=== PATIENT | female | born 1960 | race Caucasian/White ===

== ENCOUNTER 2017-05-08 09:52 | Observation (INO) ==
[2017-05-08 10:24] LABS: Basophils % 0.9 % (0.0-0.8); Eosinophils # 0.1 10*3/uL (0.0-0.87); Eosinophils % 2.2 % (0.00-10.9); Hematocrit 37.1 VOL% (35.7-47.0); Hemoglobin 12.3 GM/DL (12.0-16.0); Immature Granulocytes % 0.4 %; Immature Granulocytes Absolute 0.02 #; Lymphocytes # 1.3 10*3/uL (1.4-4.0); Mean Corpuscular HGB Conc 33.2 GM/DL (32-36); Mean Corpuscular Hemoglobin 30 PG (27-34); Mean Corpuscular Volume 91.2 FL (87-102); Mean Platelet Volume 10.6 FL (9.6-12.0); Monocytes # 0.4 10*3/uL (0.11-0.8); Monocytes % 8.3 % (1.7-12.7); Neutrophils # 2.8 10*3/uL (1.4-7.4); Neutrophils % 60.2 % (38.7-73.9); Platelet Count 170 T/CUMM (130-400); Red Blood Count 4.07 MC/CUMM (3.8-5.5); Red Cell Distribution Width 12.6 % (9.3-17.3); White Blood Count 4.6 T/CUMM (4-12)
[2017-05-08] MEDS ORDERED: ENOXAPARIN 100 MG/ML SYRINGE SUBCUT STA (10:24)
[2017-05-08] MEDS ORDERED: ENOXAPARIN 100 MG/ML SYRINGE SUBCUT ONE (10:26)
[2017-05-08 10:31] LABS: PT Patient Result 11.1 SECS; Partial Thromboplastin Time 25.3 SECS (0-40)
--- NOTE | 2017-05-08 10:39 | XRay Report ---
Exam: Chest 2 views Date: May 08, 2017 at 10:30 AM Comparison: None Reason: Chest pain Findings: The cardiac silhouette is upper normal in size. No focal consolidation, pneumothorax or pleural effusion is identified. No acute osseous process is seen. Surgical clips are noted at the anterior right abdominal wall. Impression: 1. Borderline cardiomegaly. 2. No acute pulmonary process is identified. PROCEDURE INTERPRETED AT [facility] DEPARTMENT OF RADIOLOGY Final Report Signed by: Dr. Naga Samano
[2017-05-08 10:40] LABS: Alanine Aminotransferase 26 U/L (13-56); Albumin 3.3 G/DL (3.4-5.0); Alkaline Phosphatase 127 U/L (45-117); Aspartate Amino Transferase 21 U/L (0-37); Blood Urea Nitrogen 17 MG/DL (7-18); Calcium 9.2 MG/DL (8.5-10.1); Glucose 84 MG/DL (74-106); Osmolality,Calculated 279.4 MOS/KG (273-304); Potassium 4.1 MMOL/L (3.5-5.1); Sodium 140 MMOL/L (136-145); Total Protein 6.5 G/DL (6.4-8.3); Troponin I Only 0.033 NG/ML (0.00-0.045)
--- NOTE | 2017-05-08 11:10 | Emergency Department Note ---
Ned Abarca Gwan, am scribing for, and in the presence of, Curtis Zaragoza MD 10:33. Nik Abarca Phillip K, MD, personally performed the services described in this documentation, ascribed by Antonia Marino in my presence, and it is both accurate and complete . Arrival - Arrival Chief Complaint: Chest Pain Stated Complaint: chest pain ED Nursing Triage Note: Sent from clinic Dr Nogueira - pt states that she started having some midsternal chest pain onset this am - pt went to clinic and was sent here for evaluation - pt pain was relieved with nitro x 2 Mode of Arrival: Stretcher Limitations: No Limitations Source: Patient, Old Records Reviewed, RN Notes Reviewed - History of Present Illness HPI Narrative: Patient is a 56 y/o female who presents to the ED via Dr. Nogueira office for further evaluation of mid-sternal chest pain with an onset this morning. Patient has a PMHx of Chloecystectomy and Gastric Bypass (2013). She has a PMHx of cardiac dysrhythmia and HTN. Patient stated that she was at home cooking breakfast when onset occurred. This prompted pt to report to PCP Dr. Nogueira's office. After evaluation, pt was given x2 NTG and 1 aspirin with some relief. She was then prompted to report to ED. Nurses note that while in ED, pt had another episode causing the nurse to administer another NTG with some relief. Patient describes her pain as an ache, that it is intermittent, that it started in the right side of her chest and then moved to the center of her chest and began to radiate down her right arm. She confirmed that she has been followed by Dr. Diaz, that she had an echocardiogram 3 years ago and that she has a FMHx of heart disease. Patient denies any SOB, cough or fever. During exam, pt stated that she is asymptomatic. No other problems/complaints reported in ED. Onset (ago): hour(s) Consistency: constant Severity: moderate Date of Last Menstrual Period: enzo Allergies/Adverse Reactions: Allergies Allergy/AdvReac Type Severity Reaction Status Date / Time adhesive tape Allergy RASH Verified 05/08/17 09:56 Review of System - Review of System 12 point system: reviewed and no additional remarkable complaints except as stated - Review of System Constitutional: Absent: chills, fever Eyes: Absent: discharge, pain Head/Ears/Nose/Throat: Absent: earache Respiratory: Absent: cough Cardiovascular: Present: as per HPI, chest pain Gastrointestinal: Absent: abdominal pain, nausea, vomiting, diarrhea Genitourinary female: Absent: dysuria Musculoskeletal: Absent: arm pain, back pain, leg pain, neck pain Skin: Absent: rash Neurological: Absent: headache, weakness Medical,Surgical,& Family Hx - Medical History Cardio: History of: Cardiac Dysrhythmia, Hypertension - Social History Smoking Status: Never smoker Frequency of Alcohol Use: None Type of Drug Use: None Exam Vital Signs: Vital Signs Temperature 98.0 F 05/08/17 10:02 Pulse Rate 70 05/08/17 10:02 Respiratory Rate 16 05/08/17 10:14 Blood Pressure 169/100 05/08/17 10:02 O2 Sat by Pulse Oximetry 95 05/08/17 09:56 - General General appearance: alert - Head Head exam: Present: atraumatic, normocephalic - Eye Eye exam: Present: normal appearance, PERRL, EOMI - ENT ENT exam: Present: normal oropharynx, mucous membranes moist, TM's normal bilaterally, normal external ear exam - Neck Neck exam: Present: full ROM, trachea midline. Absent: tenderness - Chest Chest inspection: Present: symmetric chest wall rise. Absent: tenderness - Respiratory Respiratory exam: Present: normal lung sounds bilaterally. Absent: respiratory distress - Cardiovascular Cardiovascular exam: Present: regular rate, normal rhythm, normal heart sounds. Absent: murmur - Abdominal Exam Abdominal exam: Present: soft, normal bowel sounds. Absent: distention, tenderness - Extremities Exam Extremities exam: Present: full ROM, other (chronic left ankle edema noted per patient ). Absent: tenderness - Back Exam Back exam: Present: full ROM. Absent: tenderness - Neurological Exam Neurological exam: Present: alert, oriented X3, CN II-XII intact. Absent: motor sensory deficit - Psychiatric Psychiatric exam: Present: normal affect, normal mood - Skin Skin exam: Present: warm, dry, intact, normal color Course Course Narrative: Patient discussed with Dr. Moffett who will admit for further cardiac evaluation. Results - Labs CBC & BMP: 05/08/17 10:03 05/08/17 10:03 Lab Results: I have reviewed the patients labs Labs: Laboratory Tests 05/08/17 05/08/17 10:03 10:03 WBC 4.6 RBC 4.07 Hgb 12.3 Hct 37.1 Plt Count 170 Baso % (Auto) 0.9 H Lymph # (Auto) 1.3 L INR 1.0 PT Patient/Control Mix 11.1 Circ Anticoag PTT 25.3 Disposition Clinical Impression: Chest pain, Possible unstable angina Case discussed with: patient Condition: Guarded Additional Instructions: Admit to Dr. Moffett
[2017-05-08] MEDS ORDERED: CYCLOBENZAPRINE 10 MG TABLET PO PRN (15:07)
[2017-05-08] MEDS ORDERED: diphenhydrAMINE CAP 25 MG CAPSULE PO ONE ×2 (15:56→16:31)
[2017-05-08] MEDS ORDERED: ENOXAPARIN 100 MG/ML SYRINGE SUBCUT SCH (16:00)
[2017-05-08] MEDS: LISINOPRIL 20 MG TABLET PO SCH (16:19)
[2017-05-08] MEDS: PANTOPRAZOLE 40 MG TABLET PO SCH (16:19)
[2017-05-08] MEDS ORDERED: POTASSIUM CHLORIDE RIDER 10 MEQ in PREMIX 1 EACH IV PRN (16:31)
[2017-05-08] MEDS ORDERED: MAGNESIUM SULF RIDER 2 GM in PREMIX 1 EACH IV PRN (16:31)
[2017-05-08] MEDS ORDERED: DIAZEPAM 5 MG TABLET PO ONE (16:31)
--- NOTE | 2017-05-08 16:40 | Cardiology History & Physical ---
Assessment and Plan - Time spent with patient Time spent with patient: Greater than 30 minutes (1) Unstable angina Status: Acute Assessment and plan: See plan of care listed below. Current Visit: Yes (2) Uncontrolled hypertension Status: Chronic Assessment and plan: See plan of care listed below. Current Visit: Yes (3) Family history of coronary artery disease Status: Chronic Assessment and plan: See plan of care listed below. 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 Current Visit: Yes History of Present Illness Chief complaint: CHEST PAIN History of present illness: Teller Manager: New to cardiology (Emily, per patient) PCP: Dr. Nogueira Ms. Momin is a 56 year old female without known history of coronary artery disease, not routinely followed by cardiology. Patient presented to emergency department earlier this morning with complaints of chest discomfort. She has cardiac risk factors significant for uncontrolled hypertension, obesity and family history of coronary artery disease (dad required coronary stents and CABG at age 68). Patient is a lifetime non-smoker and nondrinker. Patient reports that her only medical history includes hypertension. She has never undergone cardiac workup. Patient was in her usual state of health until this morning around 8:00 when she began experiencing chest pain while cooking breakfast. She reports that she has never experienced chest pain prior to today. She describes this pain as a dull, tightening left-sided chest pain that radiates down her left arm. Associated with palpitations, nausea and diaphoresis. She denies shortness of breath. She is unable to identify any specific alleviating or aggravating factors. She reports that she is very active at home and has never experienced chest pain with exertion. Denies dyspnea on exertion and exercise intolerance. She denies fever, chills, cough, abdominal pain, vomiting, melena, orthopnea, PND and lower extremity swelling. She was extremely concerned so she went to Dr. Nogueira's office for evaluation. At that time, she received nitroglycerin which relieved her pain. Chest pain lasted a total of 30 minutes. She reports her pain returned while she was still at Dr. Nogueira's office, she received a second nitroglycerin which relieved her pain a second time. At that point, she was instructed to present to the emergency department for further evaluation. While in the emergency department, she developed chest pain a third time. She received nitroglycerin which relieved her pain again. She was admitted under cardiology service and housed on the telemetry unit. Patient was seen and examined on the telemetry unit. Patient is currently without chest pain, heaviness and tightness. First set of cardiac biomarkers were negative. Second troponin was slightly elevated at 0.165. EKG does reveal ST and T-wave abnormality in inferior leads. Patient did receive therapeutic dose of Lovenox in the emergency department. Per patient report she received aspirin at Dr. Nogueira's office. Chest x-ray does not reveal any acute cardiopulmonary processes. Upon exam, patient's chest is slightly tender to palpation. However, she reports that this is not the same pain that she presented to the emergency department for. She also has complaints of being allergic to the adhesive tape. I will order some Benadryl for this reason. Patient was seen and examined with Dr. Moffett. Patient symptoms are certainly concerning for angina. At this point, we will plan heart catheterization tomorrow in order to definitively rule out underlying coronary artery disease. This will be performed by Dr. Taylor. Will allow patient to the light breakfast and plan for heart catheterization that afternoon. Risk and benefits of this procedure were reviewed with patient, her and her family both agree to proceed. She is not allergic to any medications and has no contraindications for dual antiplatelet therapy. Assessment/plan: 1. UNSTABLE ANGINA - Possibly non-ST elevation CO as patient's troponin is rising, currently 0.165. EKG does reveal ST and T-wave abnormality in inferior leads. At this point, we will continue therapeutic Lovenox (discontinue after tomorrow morning's dose) and continue to monitor patient overnight with cardiac biomarkers and EKGs. I will add gabapentin, tramadol and Tylenol to treat patient's underlying chest wall pain as patient's chest is slightly tender to palpation. However, she does confirm that this is not the same pain that she presented to the emergency department for. We will keep her n.p.o. after morning breakfast and plan for heart catheterization tomorrow afternoon in order to definitively rule out underlying coronary artery disease. This to be performed by Dr. Taylor. Risks benefits of the procedure were reviewed with the patient, her and her family both agree to proceed. She is not allergic to any medications and has no contraindications for dual antiplatelet therapy. 2. UNCONTROLLED HYPERTENSION - I have reinitiated patient's home medications. I have also added Norvasc today. Will further adjust medications as needed throughout patient's hospital stay. 3. FAMILY HISTORY OF CAD - Reports that her dad has history of coronary artery disease (dad required coronary stenting CABG a 68). 4. ALLERGY TO ADHESIVE TAPE - I have initiated Benadryl. Further plan and addendum to follow per Dr. Juarez. Home Medications Medication Instructions Recorded Confirmed Type Carvedilol [Coreg] 3.125 mg PO BID 05/08/17 05/08/17 History Cyclobenzaprine HCl 10 mg PO Q8H PRN 05/08/17 05/08/17 History HYDROcodone/ACETAMIN 7.5-325 1 tablet PO Q6H PRN 05/08/17 05/08/17 History [Gilbert 7.5-325] Lisinopril 20 mg PO DAILY 05/08/17 05/08/17 History Montelukast Chew Tab [Singulair 5 mg PO DAILY 05/08/17 05/08/17 History Chew Tab] Multivitamin [Multivitamins] 1 each PO DAILY 05/08/17 05/08/17 History PARoxetine HCl [Paxil] 10 mg PO DAILY 05/08/17 05/08/17 History Potassium Chloride [Klor-Con M20] 20 meq PO DAILY 05/08/17 05/08/17 History rOPINIRole [Requip] 1 mg PO BEDTIME 05/08/17 05/08/17 History Allergies Allergy/AdvReac Type Severity Reaction Status Date / Time adhesive tape Allergy RASH Verified 05/08/17 09:56 - Constitutional Constitutional: Absent: chills, fatigue, fever(s), frequent falls, headache(s), lethargy, malaise, night sweats, weakness, weight gain, weight loss - Cardiovascular Cardiovascular: Present: chest pain at rest, radiating jaw, neck or arm pain, palpitations. Absent: claudication, diaphoresis, dyspnea, dyspnea on exertion, lightheadedness, orthopnea, PND - Respiratory Respiratory: Absent: cough, dyspnea, hemoptysis, dyspnea on exertion, wheezing, snoring, pain on inspiration, change in phlegm color - Gastrointestinal Gastrointestinal: Present: nausea. Absent: abdominal pain, change in bowel habits, coffee ground emesis, constipation, cramping, diarrhea, heartburn, hematemesis, hematochezia, loose stools, melena, vomiting - Neurological Neurological: Absent: abnormal gait, abnormal speech, behavioral changes, dizziness, frequent falls, syncope - Hematologic/Lymphatic Hematologic/Lymphatic: Absent: easy bleeding, easy bruising, lymphadenopathy Medical,Surgical,& Family Hx - Medical History Cardio: History of: Cardiac Dysrhythmia, Hypertension - Social History Smoking Status: Never smoker Frequency of Alcohol Use: None Type of Drug Use: None Cardiology Physical Exam - Constitutional Vitals: Vital Signs Temp Pulse Resp BP Pulse Ox 98.0 F 60 15 182/97 98 05/08/17 10:02 05/08/17 12:36 05/08/17 12:36 05/08/17 12:36 05/08/17 12:36 Intake and Output 05/08/17 05/08/17 05/08/17 06:59 14:59 22:59 Other: Weight 230 lb Patient Weight 05/09/17 06:59 Weight 230 lb Exam: General: Appears well with no apparent distress. Pleasant and cooperative. Appears comfortable. Obese. HEENT: PERRL, normocephalic, atraumatic. Mucous membranes moist. No jaundice noted. Conjunctiva moist and clear, sclerae anicteric Neck: No JVD/HJR, no thyromegaly or lymphadenopathy noted. No carotid bruit appreciated Cardiac: Regular rate and rhythm. No murmur rub or gallop. Lungs: Clear to auscultation without accessory muscle use to assist the respiratory pattern. Not requiring oxygen. Abdomen: Soft, bowel sounds normoactive. Nontender and nondistended. No abdominal bruit or thrill noted. No masses noted. Extremities: No clubbing, cyanosis noted. No edema noted. Upper extremity pulses 2+. Lower extremity pulses 2+. Capillary refill less than 3 seconds. Skin: No unusual lesions or rashes. No skin breakdown appreciated. Neuro: Awake, alert and oriented 3. Moves all extremities well without hemiparesis or paralysis. No essential tremor is appreciated. Result/EKG - Labs CBC & BMP: 05/08/17 10:03 05/08/17 10:03 Lab Results: I have reviewed the past 24 hour labs Labs: Laboratory Results - last 24 hr 05/08/17 05/08/17 05/08/17 10:03 10:03 10:03 WBC 4.6 RBC 4.07 Hgb 12.3 Hct 37.1 MCV 91.2 MCH 30 MCHC 33.2 RDW 12.6 Plt Count 170 MPV 10.6 Neut % (Auto) 60.2 Lymph % (Auto) 28.0 [place] % (Auto) 8.3 Eos % (Auto) 2.2 Baso % (Auto) 0.9 H Neut # (Auto) 2.8 Lymph # (Auto) 1.3 L [place] # (Auto) 0.4 Eos # (Auto) 0.1 Baso # (Auto) 0.0 Immature Gran % 0.4 Nucleated RBC % 0.0 Immature Gran # 0.02 Nucleated RBCs # 0.00 INR 1.0 PT Patient/Control Mix 11.1 Circ Anticoag PTT 25.3 Sodium 140 Potassium 4.1 Chloride 105 Carbon Dioxide 27 Anion Gap 12.1 BUN 17 Creatinine 0.60 GFR Calculation 126 BUN/Creatinine Ratio 28.00 H Glucose 84 Calculated Osmolality 279.4 Calcium 9.2 Total Bilirubin 0.70 AST 21 ALT 26 Alkaline Phosphatase 127 H Total Creatine Kinase 123 CK-MB (CK-2) 2.9 Troponin I 0.033 Total Protein 6.5 Albumin 3.3 L Globulin 3.2 Albumin/Globulin Ratio 1.0 L 05/08/17 12:58 WBC RBC Hgb Hct MCV MCH MCHC RDW Plt Count MPV Neut % (Auto) Lymph % (Auto) [place] % (Auto) Eos % (Auto) Baso % (Auto) Neut # (Auto) Lymph # (Auto) [place] # (Auto) Eos # (Auto) Baso # (Auto) Immature Gran % Nucleated RBC % Immature Gran # Nucleated RBCs # INR PT Patient/Control Mix Circ Anticoag PTT Sodium Potassium Chloride Carbon Dioxide Anion Gap BUN Creatinine GFR Calculation BUN/Creatinine Ratio Glucose Calculated Osmolality Calcium Total Bilirubin AST ALT Alkaline Phosphatase Total Creatine Kinase CK-MB (CK-2) Troponin I 0.165 H D Total Protein Albumin Globulin Albumin/Globulin Ratio - EKG EKG results: interpreted by me, sinus rhythm (Sinus rhythm with ST and T-wave abnormality in inferior leads.)
[2017-05-08] MEDS: amLODIPine 5 MG TABLET PO SCH (16:45)
[2017-05-08] MEDS: ACETAMINOPHEN 325 MG TABLET PO SCH ×2 (16:45→21:13)
[2017-05-08] MEDS ORDERED: clonazePAM 0.5 MG TABLET PO PRN (16:59)
[2017-05-08 17:14] LABS: Troponin I Only 0.196 NG/ML (0.00-0.045)
[2017-05-08] MEDS ORDERED: MORPHINE 2 MG/1 ML SYRINGE IV PRN (17:39)
[2017-05-08] MEDS: traMADol 50 MG TABLET PO SCH ×2 (18:35→21:14)
[2017-05-08] MEDS: NITROGLYCERIN 2% OINT 1 INCH/GM PACK TOP SCH ×2 (18:36→23:55)
[2017-05-08] MEDS: CARVEDILOL 3.125 MG TABLET PO SCH (21:13)
[2017-05-08] MEDS: rOPINIRole 1 MG TABLET PO SCH (21:13)
[2017-05-08] MEDS: GABAPENTIN 100 MG CAPSULE PO SCH (21:13)
[2017-05-08] MEDS: ENOXAPARIN 100 MG/ML SYRINGE SUBCUT SCH (21:51)
--- NOTE | 2017-05-09 00:56 | History and Physical Update ---
Sedation H&P Update - History and Physical H&P was reviewed, the patient examined and there: are no changes in the patients condition since last H&P was completed. - Dictation Physical: refer to H&P completed by admitting physician - Physical Exam Mental Status: alert and oriented Heart: regular rate and rhythm Lung: clear to auscultation Abdomen: within normal limits Vitals: within normal limits - Sedation Plan for Sedation: minimal Patient Consent: Procedure disscussed with patient and patinet has consented., Risks and benefits were discussed with patient,including infection,, bleeding, injury to surrounding structures, seizure, temporary nerve, Patient understands and accepts potential risks/benefits and agrees to, proceed. ASA Class: II Airway Assessment: Class II: Soft palate, uvula, fauces visible
[2017-05-09 00:58] LABS: Basophils # 0.1 10*3/uL (0.0-0.2); Eosinophils # 0.2 10*3/uL (0.0-0.87); Eosinophils % 3.6 % (0.00-10.9); Hematocrit 35.5 VOL% (35.7-47.0); Hemoglobin 11.6 GM/DL (12.0-16.0); Immature Granulocytes % 0.2 %; Immature Granulocytes Absolute 0.01 #; Lymphocytes # 1.8 10*3/uL (1.4-4.0); Lymphocytes % 35.7 % (21.3-54.2); Mean Corpuscular HGB Conc 32.7 GM/DL (32-36); Mean Corpuscular Hemoglobin 30 PG (27-34); Mean Corpuscular Volume 91.7 FL (87-102); Mean Platelet Volume 10.2 FL (9.6-12.0); Monocytes # 0.4 10*3/uL (0.11-0.8); Monocytes % 8.9 % (1.7-12.7); Neutrophils # 2.5 10*3/uL (1.4-7.4); Neutrophils % 50.6 % (38.7-73.9); Platelet Count 188 T/CUMM (130-400); Red Blood Count 3.87 MC/CUMM (3.8-5.5); Red Cell Distribution Width 12.7 % (9.3-17.3)
[2017-05-09 01:32] LABS: Calcium 8.4 MG/DL (8.5-10.1); Magnesium 1.9 MG/DL (1.8-2.4); Potassium 3.8 MMOL/L (3.5-5.1)
[2017-05-09 01:36] LABS: Risk Ratio 2.4; VLDL CHOLESTEROL 15.2 MG/DL
[2017-05-09 01:39] LABS: Troponin I Only 0.063 NG/ML (0.00-0.045)
--- NOTE | 2017-05-09 04:44 | EKG Report ---
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
--- NOTE | 2017-05-09 04:45 | EKG Report ---
Stationary ECG Study 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
--- NOTE | 2017-05-09 04:47 | EKG Report ---
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
[2017-05-09] MEDS: NITROGLYCERIN 2% OINT 1 INCH/GM PACK TOP SCH ×2 (06:09→13:29)
--- NOTE | 2017-05-09 07:34 | EKG Report ---
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
[2017-05-09] MEDS ORDERED: POTASSIUM CHLORIDE RIDER 10 MEQ in PREMIX 1 EACH IV PRN (07:46)
[2017-05-09] MEDS ORDERED: MAGNESIUM SULF RIDER 2 GM in PREMIX 1 EACH IV PRN (07:46)
--- NOTE | 2017-05-09 07:46 | History and Physical Update ---
Sedation H&P Update - History and Physical H&P was reviewed, the patient examined and there: are no changes in the patients condition since last H&P was completed. - Dictation Physical: refer to scanned H&P - Physical Exam Mental Status: alert and oriented - Sedation Plan for Sedation: moderate Patient Consent: Procedure disscussed with patient and patinet has consented., Risks and benefits were discussed with patient,including infection,, bleeding, injury to surrounding structures, seizure, temporary nerve, Patient understands and accepts potential risks/benefits and agrees to, proceed. ASA Class: II Airway Assessment: Class II: Soft palate, uvula, fauces visible
[2017-05-09] MEDS ORDERED: diphenhydrAMINE CAP 25 MG CAPSULE PO ONE ×2 (08:00→09:00)
[2017-05-09] MEDS ORDERED: DIAZEPAM 5 MG TABLET PO ONE ×2 (08:00→09:00)
[2017-05-09 08:49] LABS: Troponin I Only 0.032 NG/ML (0.00-0.045)
[2017-05-09] MEDS ORDERED: PARoxetine 10 MG TABLET PO SCH (09:00)
[2017-05-09] MEDS: ENOXAPARIN 100 MG/ML SYRINGE SUBCUT SCH (09:06)
[2017-05-09] MEDS: SODIUM CHLORIDE 0.45% 1,000 ML IV SCH (09:11)
[2017-05-09] MEDS: traMADol 50 MG TABLET PO SCH ×2 (09:11→20:33)
[2017-05-09] MEDS: PARoxetine 20 MG TABLET PO SCH (09:12)
[2017-05-09] MEDS: CARVEDILOL 3.125 MG TABLET PO SCH ×2 (09:12→20:33)
[2017-05-09] MEDS: MULTIVITAMIN (CENTRUM) TABLET PO SCH (09:12)
[2017-05-09] MEDS: LISINOPRIL 20 MG TABLET PO SCH (09:12)
[2017-05-09] MEDS: GABAPENTIN 100 MG CAPSULE PO SCH ×3 (09:13→20:33)
[2017-05-09] MEDS: ASPIRIN 325 MG TABLET PO SCH (09:13)
[2017-05-09] MEDS: MONTELUKAST CHEW 5 MG TABLET PO SCH (09:14)
[2017-05-09] MEDS: POTASSIUM CHLORIDE 20 MEQ TABLET PO SCH (09:14)
[2017-05-09] MEDS: ACETAMINOPHEN 325 MG TABLET PO SCH ×2 (09:14→20:33)
[2017-05-09] MEDS: amLODIPine 5 MG TABLET PO SCH (09:15)
[2017-05-09] MEDS: PANTOPRAZOLE 40 MG TABLET PO SCH (09:21)
[2017-05-09] MEDS ORDERED: HEPARIN/NACL 0.9% 2 UNITS/ML 1,000 ML IV ONE (13:07)
[2017-05-09] MEDS ORDERED: LIDOCAINE 1% 20 ML VIAL ONE (13:07)
[2017-05-09] MEDS ORDERED: HYDROmorphone 2 MG/1 ML VIAL ONE ×2 (14:11→14:37)
[2017-05-09] MEDS ORDERED: MIDAZOLAM 2 MG/2 ML VIAL ONE ×2 (14:11→14:37)
--- NOTE | 2017-05-09 15:11 | Cardiac Catheterization ---
Date of Procedure:: 05/09/17 Pre-op Diagnosis: Chest pain CAD suspected Post-op diagnosis: other (Noncardiac chest pain) Procedure: Cardiac catheterization procedure note #1 left heart catheterization #2 selective coronary angiography #3 left ventriculography Omnipaque was used for the procedure Description of procedure Following sterile preparation and draping of the right groin, local anesthesia was achieved by infiltration with 1% Xylocaine. Using a Cook needle the right femoral artery was cannulated and a #6 sheath was inserted. A 6 Angolan pigtail catheter was introduced and advanced retrograde across aortic valve into the left ventricle and the end-diastolic pressure was recorded. Left ventriculography was performed the COOPER projection using 24 cc of contrast. A pullback recording was made across aortic valve. The pigtail catheter was exchanged for a 6 Angolan left Osmar catheter and left coronary angiography was performed in several COOPER and VINCENTIAN projections. The catheter change for a 6 [place]olan right Amplatz catheter and right coronary angiography was performed in the VINCENTIAN projection only. The catheter and sheath were then removed and the femoral arteriotomy site was sealed percutaneous a minx closure device with prompt cessation of bleeding and prompt return of femoral and foot pulses. No complications ensued. The patient was transferred back to telemetry in stable condition. Hemodynamic data Aortic pressure 138/76 mean 98 Left ventricle 138/15 Selective coronary angiography The circulation is left dominant. Left main trunk is widely patent bifurcates. The LAD is a large vessel wraps on the apex. It is widely patent throughout its course. 2 diagonal branches are patent. The dominant circumflex is quite large and widely patent throughout its course. The PDA extends well out the apex and is widely patent. The right coronary is a small nondominant vessel and is patent. Left ventriculography The end-systolic and end-diastolic glands are normal. All segments of the ventricle contracted well. Ejection fraction 60%. No mitral regurgitation. Conclusions #1 increased LVEDP 15 #2 ejection fraction 60% with no wall motion abnormalities #3 no mitral regurgitation #4 no aortic valve gradient #5 left dominant circulation #6 widely patent coronary arteries Disposition The patient has a left dominant circulation with widely patent coronary arteries and preserved ventricular function ejection fraction 60% with no discrete wall motion abnormalities. Her current chest pain syndrome is not cardiac in nature and there is no evidence for PR. Continued medical therapy and risk factor modification recommended. Cine pictures were reviewed with several family members. Continue normal saline hydration and recheck BMP in a.m. Implants: No implants Anesthesia: moderate conscious sedation Surgeon / Physician: Carlos Taylor Estimated blood loss: minimal Specimens: none sent Condition: stable Disposition: floor - Medications / Follow-up
[2017-05-09] MEDS ORDERED: ZALEPLON 5 MG CAPSULE PO PRN (15:13)
[2017-05-09] MEDS ORDERED: ONDANSETRON 4 MG/2 ML VIAL IV PRN (15:13)
--- NOTE | 2017-05-09 16:33 | Discharge Summary ---
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 Nogueira Ms. Momin is a 56 year old female with a history of uncontrolled hypertension , obesity and family history of coronary artery disease (dad required coronary stents and CABG at age 68). She presented to [facility] with complaints of chest pain that was concerning for angina. Subsequently, she underwent heart catheterization per Dr. Taylor May 09, 2017 with the following impressions noted: IMPRESSIONS: 1. Increased LVEDP 15 2. Ejection fraction 60% with no wall motion abnormalities 3. No mitral regurgitation 4. No aortic valve gradient 5. Left dominant circulation 6. Widely patent coronary arteries Recommendations: The patient has a left dominant circulation with widely patent coronary arteries and preserved ventricular function ejection fraction 60% with no discrete wall motion abnormalities. Her current chest pain syndrome is not cardiac in nature and there is no evidence for NE. Continued medical therapy and risk factor modification recommended. Continue normal saline hydration and recheck BMP in a.m. Post catheterization patient was transferred back to the telemetry unit in stable condition. Overnight, patient has done well and is without complaints this morning. She denies chest pain, heaviness and tightness. Labs have been reviewed. Creatinine is stable post catheterization, 0.6. Right groin is soft without bleeding, hematoma and bruit. Distal pulses present. Patient has ambulated around the room and down the omalley without difficulty. Right groin has remained stable post ambulation. Right groin precautions have been reviewed with the patient and family. They verbalized understanding of this. Vital signs are stable. Patient is anxious for discharge home. Having felt that she has met maximal medical therapy, she will be discharged home in stable condition. Patient has been given a follow-up appointment with Dr. Moffett in 2 weeks with CBC and BMP. She will also be given a follow-up appointment with her PCP, Dr. Nogueira. Patient will be discharged home on preadmission medications. Patient will be given a written prescription for tramadol 50 mg twice daily (written per Dr. Moffett) for 1 week as well as gabapentin 100 mg 3 times daily for 1 month for treatment of her chest wall pain. She will also be given a prescription for PPI. Low-dose Norvasc was also added to patient's medication regimen as her blood pressure was controlled this hospitalization. Patient verbalizes understanding of discharge instructions and discharge medications. 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 Moffett in 2 weeks with ANAY and BMP.) Discharge Plan - Discharge Data Disposition: Disch To Home/Self Care Condition at Discharge: Stable Discharge Diet: diabetic diet, heart healthy Activity: no lifting (Avoid heavy lifting and squatting 1 week.), other (Post cath expectations) Hygiene: may shower, other (Post cath expectations) Weight Bearing at Discharge: other (Post cath expectations) Driving: other (Post cath expectations) Contact your physician if you experience:: fever over 101, Difficulty voiding, Redness or swelling, Nausea/Vomiting, Shortness of breath, Bleeding, pain uncontrolled by pain medications - Discharge Medications New Pantoprazole Tab [Protonix Tab] 40 mg PO DAILY #30 tablet amLODIPine [Norvasc] 5 mg PO DAILY #30 tablet traMADol TAB [Ultram] 50 mg PO BID tablet Aspirin [Ecotrin] 81 mg PO DAILY #30 tablet. Gabapentin Cap/Tab [Neurontin Cap/Tab] 100 mg PO TID #90 capsule Continue rOPINIRole [Requip] 1 mg PO BEDTIME Potassium Chloride [Klor-Con M20] 20 meq PO DAILY Lisinopril 20 mg PO DAILY Carvedilol [Coreg] 3.125 mg PO BID PARoxetine HCl [Paxil] 10 mg PO DAILY Multivitamin [Multivitamins] 1 each PO DAILY HYDROcodone/ACETAMIN 7.5-325 [[place] 7.5-325] 1 tablet PO Q6H PRN PRN Reason: Pain Montelukast Chew Tab [Singulair Chew Tab] 5 mg PO DAILY Cyclobenzaprine HCl 10 mg PO Q8H PRN PRN Reason: Pain - Follow Up or Referral Follow Up: El Mofeftt MD [Physician] - 2 Weeks (Please schedule follow-up appointment with Dr. Moffett in 2 weeks with ANAY and BMP.) Corrie Nogueira MD [Physician] - 1 Month - Forms/Instructions Instructions: Left Heart Catheterization (DC), Heart Healthy Diet (GEN), Coronary Artery Disease in Women (GEN) Exam - Constitutional Vitals: Period Temp Pulse Resp BP Sys/Yanes Pulse Ox Last 24 Hr 97.3 F-99.4 F 70-77 18-20 114-181/66-103 95-100 Exam: General: Appears well with no apparent distress. Pleasant and cooperative. Appears comfortable. Obese. HEENT: PERRL, normocephalic, atraumatic. Mucous membranes moist. No jaundice noted. Conjunctiva moist and clear, sclerae anicteric Neck: No JVD/HJR, no thyromegaly or lymphadenopathy noted. No carotid bruit appreciated Cardiac: Regular rate and rhythm. No murmur rub or gallop. Lungs: Clear to auscultation without accessory muscle use to assist the respiratory pattern. Not requiring oxygen. Abdomen: Soft, bowel sounds normoactive. Nontender and nondistended. No abdominal bruit or thrill noted. No masses noted. Extremities: No clubbing, cyanosis noted. No edema noted. Upper extremity pulses 2+. Lower extremity pulses 2+. Capillary refill less than 3 seconds. Right groin soft without bleeding, hematoma and bruit. Distal pulses 2+. Skin: No unusual lesions or rashes. No skin breakdown appreciated. Neuro: Awake, alert and oriented 3. Moves all extremities well without hemiparesis or paralysis. No essential tremor is appreciated. Discharge Results Procedures and tests throughout hospitalization: Pending Orders 05/09/17 14:08 CL heart Routine 05/10/17 04:00 BMP w/ Mg [Basic Metabolic Panel w/Mg] IN AM Basic Metabolic Panel IN AM CBC [Comp Blood Count Auto Diff] IN AM Labs on day of discharge: Labs from last 24 hours 05/09/17 05/09/17 05/09/17 07:45 00:37 00:37 WBC RBC Hgb Hct MCV MCH MCHC RDW Plt Count MPV Neut % (Auto) Lymph % (Auto) Bryan % (Auto) Eos % (Auto) Baso % (Auto) Neut # (Auto) Lymph # (Auto) Bryan # (Auto) Eos # (Auto) Baso # (Auto) Immature Gran % Nucleated RBC % Immature Gran # Nucleated RBCs # Sodium 143 Potassium 3.8 Chloride 108 H Carbon Dioxide 28 Anion Gap 10.8 BUN 17 Creatinine 0.60 GFR Calculation 126 BUN/Creatinine Ratio 28.00 H Glucose 79 POC Glucose Calculated Osmolality 285.0 Calcium 8.4 L Magnesium 1.9 Total Creatine Kinase 80 CK-MB (CK-2) 2.0 Troponin I 0.032 Triglycerides 76 Cholesterol 187 LDL Cholesterol 92.0 VLDL Cholesterol 15.2 HDL Cholesterol 78 H Heart Disease Risk Ratio 2.40 05/09/17 05/09/17 05/08/17 00:37 00:37 16:45 WBC 5.0 RBC 3.87 Hgb 11.6 L Hct 35.5 L MCV 91.7 MCH 30 MCHC 32.7 RDW 12.7 Plt Count 188 MPV 10.2 Neut % (Auto) 50.6 Lymph % (Auto) 35.7 Bryan % (Auto) 8.9 Eos % (Auto) 3.6 Baso % (Auto) 1.0 H Neut # (Auto) 2.5 Lymph # (Auto) 1.8 Bryan # (Auto) 0.4 Eos # (Auto) 0.2 Baso # (Auto) 0.1 Immature Gran % 0.2 Nucleated RBC % 0.0 Immature Gran # 0.01 Nucleated RBCs # 0.00 Sodium Potassium Chloride Carbon Dioxide Anion Gap BUN Creatinine GFR Calculation BUN/Creatinine Ratio Glucose POC Glucose 142 H Calculated Osmolality Calcium Magnesium Total Creatine Kinase 90 D CK-MB (CK-2) 2.4 Troponin I 0.063 H D Triglycerides Cholesterol LDL Cholesterol VLDL Cholesterol HDL Cholesterol Heart Disease Risk Ratio 05/08/17 16:06 WBC RBC Hgb Hct MCV MCH MCHC RDW Plt Count MPV Neut % (Auto) Lymph % (Auto) Bryan % (Auto) Eos % (Auto) Baso % (Auto) Neut # (Auto) Lymph # (Auto) Bryan # (Auto) Eos # (Auto) Baso # (Auto) Immature Gran % Nucleated RBC % Immature Gran # Nucleated RBCs # Sodium Potassium Chloride Carbon Dioxide Anion Gap BUN Creatinine GFR Calculation BUN/Creatinine Ratio Glucose POC Glucose Calculated Osmolality Calcium Magnesium Total Creatine Kinase 164 D CK-MB (CK-2) 4.6 H Troponin I 0.196 H Triglycerides Cholesterol LDL Cholesterol VLDL Cholesterol HDL Cholesterol Heart Disease Risk Ratio - Imaging and Cardiology Cardiology Procedure: report reviewed by Procedure: X-ray: report reviewed by DS: Provider Date of admission: 05/08/17 11:12 Primary care physician: . No PCP Attending physician on admission: El Moffett MD Consults: 05/09/17 15:13 Consult to Cardiac Rehabilitation [CONS] Routine Reason for Cardiac Rehabilitation: Risk Factor Modification Discharging clinician: Ngoc Martinez NP Expected date of discharge: 05/10/17
[2017-05-09] MEDS: rOPINIRole 1 MG TABLET PO SCH (20:33)
[2017-05-09] MEDS ORDERED: diphenhydrAMINE CAP 25 MG CAPSULE PO SCH (21:00)
[2017-05-10 05:16] LABS: Eosinophils # 0.1 10*3/uL (0.0-0.87); Eosinophils % 3.5 % (0.00-10.9); Hemoglobin 10.6 GM/DL (12.0-16.0); Immature Granulocytes % 0.2 %; Immature Granulocytes Absolute 0.01 #; Lymphocytes # 1.1 10*3/uL (1.4-4.0); Lymphocytes % 26.1 % (21.3-54.2); Mean Corpuscular HGB Conc 32.1 GM/DL (32-36); Mean Corpuscular Hemoglobin 30 PG (27-34); Mean Corpuscular Volume 93.2 FL (87-102); Mean Platelet Volume 9.5 FL (9.6-12.0); Monocytes # 0.4 10*3/uL (0.11-0.8); Monocytes % 9.7 % (1.7-12.7); Neutrophils # 2.4 10*3/uL (1.4-7.4); Neutrophils % 59.5 % (38.7-73.9); Platelet Count 142 T/CUMM (130-400); Red Blood Count 3.54 MC/CUMM (3.8-5.5); Red Cell Distribution Width 12.3 % (9.3-17.3)
[2017-05-10 05:53] LABS: Calcium 8.3 MG/DL (8.5-10.1); Osmolality,Calculated 278.4 MOS/KG (273-304); Potassium 3.8 MMOL/L (3.5-5.1)
[2017-05-10 08:22] VITALS: BP 120/70
[2017-05-10] MEDS: ASPIRIN 325 MG TABLET PO SCH (09:11)
[2017-05-10] MEDS: POTASSIUM CHLORIDE 20 MEQ TABLET PO SCH (09:11)
[2017-05-10] MEDS: MULTIVITAMIN (CENTRUM) TABLET PO SCH (09:11)
[2017-05-10] MEDS: MONTELUKAST CHEW 5 MG TABLET PO SCH (09:12)
[2017-05-10] MEDS: PARoxetine 20 MG TABLET PO SCH (09:12)
[2017-05-10] MEDS: CARVEDILOL 3.125 MG TABLET PO SCH (09:12)
[2017-05-10] MEDS: LISINOPRIL 20 MG TABLET PO SCH (09:12)
[2017-05-10] MEDS: PANTOPRAZOLE 40 MG TABLET PO SCH (09:13)
[2017-05-10] MEDS: traMADol 50 MG TABLET PO SCH (09:13)
[2017-05-10] MEDS: ACETAMINOPHEN 325 MG TABLET PO SCH (09:13)
[2017-05-10] MEDS: amLODIPine 5 MG TABLET PO SCH (09:13)
[2017-05-10] MEDS: GABAPENTIN 100 MG CAPSULE PO SCH (09:13)
[2017-05-10] MEDS: SODIUM CHLORIDE 0.45% 1,000 ML IV SCH ×2 (10:07)
== END 2017-05-10 11:50 | disposition home or self-care (01) ==
LOC: EDUNIT# → EDBD → N.EDINP 09:52 → N.ED 09:52 → N.TELES 11:35
PROVIDERS: ADMIT Internal Medicine Cardiovascular Disease; ATTEND Internal Medicine Cardiovascular Disease
PROC: CLCCHCL (ICD-10-PCS; 2017-05-09 14:45)

== ENCOUNTER 2019-04-21 05:46 | Inpatient (IN) ==
[2019-04-20 09:23] LABS: Basophils % 0.7 % (0.0-0.8); Eosinophils # 0.1 10*3/uL (0.0-0.87); Eosinophils % 1.9 % (0.00-10.9); Hematocrit 36.6 VOL% (35.7-47.0); Immature Granulocytes % 0.2 %; Immature Granulocytes Absolute 0.01 #; Lymphocytes % 16.7 % (21.3-54.2); Mean Corpuscular HGB Conc 30.1 GM/DL (32-36); Mean Corpuscular Volume 95.3 FL (87-102); Mean Platelet Volume 9.7 FL (9.6-12.0); Monocytes % 5.7 % (1.7-12.7); Neutrophils % 74.8 % (38.7-73.9); Platelet Count 239 T/CUMM (130-400); Red Blood Count 3.84 MC/CUMM (3.8-5.5); White Blood Count 5.8 T/CUMM (4-12)
[2019-04-20 09:24] LABS: Apearance,Urine CLEAR (Clear); Bilirubin,Urine Negative (Negative); Blood, Urine Negative (Negative); Glucose,Urine (UA) Negative (Negative); Ketones,Urine Negative (Negative); Nitrite,Urine Negative (Negative); Protein,Urine Negative; RBC,Urine 1 /HPF (0-4); Squamous Epithelial Cell,Urine Occasional /HPF (0-10); Urine Color Straw (Yellow); Urine Specific Gravity 1.004 (1.001-1.035); Urine Urobilinogen < 2.0 EU/DL (0.2-1.0); WBC,Urine 1 /HPF (0-6)
[2019-04-20 09:31] LABS: Partial Thromboplastin Time 27.1 SECS (0-40)
[2019-04-20 10:02] LABS: Alanine Aminotransferase 18 U/L (13-56); Albumin 3.3 G/DL (3.4-5.0); Alkaline Phosphatase 159 U/L (45-117); Aspartate Amino Transferase 19 U/L (0-37); Bilirubin,Total < 0.39 MG/DL (0.2-1.0); Blood Urea Nitrogen 10 MG/DL (7-18); Calcium 8.6 MG/DL (8.5-10.1); Glucose 97 MG/DL (74-106); Osmolality,Calculated 275.5 MOS/KG (273-304); Total Protein 6.6 G/DL (6.4-8.3)
[2019-04-21] MEDS ORDERED: GABAPENTIN 400 MG CAPSULE PO ONE (05:48)
[2019-04-21] MEDS ORDERED: FAMOTIDINE 20 MG TABLET PO ONE (05:48)
[2019-04-21] MEDS ORDERED: ACETAMINOPHEN 500 MG TABLET PO ONE (05:48)
[2019-04-21] MEDS ORDERED: DIAZEPAM 5 MG TABLET PO ONE (05:48)
[2019-04-21] MEDS ORDERED: VANCOMYCIN 1,000 MG VIAL ONE (05:57)
[2019-04-21] MEDS ORDERED: ceFAZolin 1,000 MG VIAL ONE (05:57)
[2019-04-21] MEDS ORDERED: ceFAZolin 1,000 MG in SYRINGE 1 EACH IV ONE (06:00)
[2019-04-21] MEDS ORDERED: LACTATED RINGERS 1,000 ML IV SCH (06:00)
[2019-04-21] MEDS ORDERED: VANCOMYCIN INJ 1,000 MG in SODIUM CHLORIDE 0.9% 250 ML IV ONE (06:00)
[2019-04-21] MEDS ORDERED: SCOPOLAMINE 1.5 MG PATCH TRANSDERM STA (06:20)
[2019-04-21] MEDS ORDERED: SCOPOLAMINE 1.5 MG PATCH TRANSDERM ONE (06:25)
[2019-04-21] MEDS ORDERED: GABAPENTIN 400 MG CAPSULE ONE (06:25)
[2019-04-21] MEDS ORDERED: FAMOTIDINE 20 MG TABLET ONE (06:25)
[2019-04-21] MEDS ORDERED: ROPIVACAINE 0.5% 30 ML VIAL ONE (06:33)
[2019-04-21] MEDS ORDERED: DEXAMETHASONE 4 MG/1 ML VIAL ONE (06:33)
[2019-04-21] MEDS ORDERED: TRANEXAMIC ACID 1,000 MG/10 ML VIAL ONE (06:43)
[2019-04-21] MEDS ORDERED: BACITRACIN OINT 0.9 GM PACK TOP ONE (06:44)
[2019-04-21] MEDS ORDERED: PROMETHAZINE 25 MG/1 ML VIAL IM PRN (07:07)
[2019-04-21] MEDS ORDERED: MAGNESIUM HYDROXIDE SUSP 30 ML UDCUP PO PRN (07:07)
[2019-04-21] MEDS ORDERED: LACTULOSE 20 GM/30 ML UDCUP PO PRN (07:07)
[2019-04-21] MEDS ORDERED: diphenhydrAMINE CAP 25 MG CAPSULE PO PRN (07:07)
[2019-04-21] MEDS ORDERED: BISACODYL 10 MG SUPP RECTAL PRN (07:07)
[2019-04-21] MEDS ORDERED: TEMAZEPAM 7.5 MG CAPSULE PO PRN (07:07)
[2019-04-21] MEDS ORDERED: CYCLOBENZAPRINE 10 MG TABLET PO PRN (07:10)
[2019-04-21] MEDS ORDERED: DICLOFENAC SODIUM 75 MG TABLET PO SCH (09:00)
[2019-04-21] MEDS ORDERED: MEPERIDINE 25 MG/1 ML VIAL ONE ×2 (09:16→09:17)
[2019-04-21] MEDS ORDERED: KETOROLAC 30 MG/1 ML VIAL ONE ×2 (09:16→09:40)
[2019-04-21] MEDS ORDERED: PROMETHAZINE 25 MG/1 ML VIAL ONE (09:17)
[2019-04-21] MEDS ORDERED: ONDANSETRON 4 MG/2 ML VIAL ONE (09:17)
[2019-04-21] MEDS ORDERED: PROMETHAZINE INJ 25 MG in SODIUM CHLORIDE 0.9% 50 ML IV PRN (09:18)
[2019-04-21] MEDS ORDERED: ONDANSETRON 4 MG/2 ML VIAL IV PRN (09:18)
[2019-04-21] MEDS ORDERED: HYDROmorphone 2 MG/1 ML VIAL IV PRN (09:18)
[2019-04-21] MEDS ORDERED: PROPOFOL 200 MG/20 ML VIAL IV ONE (09:20)
[2019-04-21] MEDS ORDERED: SEVOFLURANE 1 UNIT/15 MINUTE INH ONE (09:20)
[2019-04-21] MEDS ORDERED: fentaNYL 100 MCG/2 ML VIAL ONE (09:21)
[2019-04-21] MEDS ORDERED: MIDAZOLAM 2 MG/2 ML VIAL ONE (09:21)
[2019-04-21] MEDS ORDERED: SUCCINYLCHOLINE 200 MG/10 ML VIAL ONE (09:22)
[2019-04-21] MEDS ORDERED: NEOSTIGMINE 10 MG/10 ML VIAL ONE (09:22)
[2019-04-21] MEDS ORDERED: ROCURONIUM 100 MG/10 ML VIAL IV ONE (09:22)
[2019-04-21] MEDS ORDERED: GLYCOPYRROLATE 0.4 MG/2 ML VIAL ONE (09:22)
[2019-04-21] MEDS ORDERED: SODIUM CHLORIDE 0.9% 100 ML IV ONE (09:22)
[2019-04-21] MEDS: MEPERIDINE 25 MG/1 ML VIAL IV PRN ×2 (09:25→09:35)
[2019-04-21] MEDS ORDERED: KETOROLAC 30 MG/1 ML VIAL IV ONE (09:47)
[2019-04-21] MEDS: amLODIPine 10 MG TABLET PO SCH (10:30)
[2019-04-21] MEDS: CARVEDILOL 6.25 MG TABLET PO SCH ×2 (10:30→20:33)
[2019-04-21] MEDS: MONTELUKAST CHEW 5 MG TABLET PO SCH (10:37)
[2019-04-21] MEDS: DOCUSATE SODIUM 100 MG CAPSULE PO SCH ×2 (10:43→20:33)
[2019-04-21] MEDS: CETIRIZINE 10 MG TABLET PO SCH (10:43)
[2019-04-21] MEDS: LISINOPRIL 20 MG TABLET PO SCH (10:43)
[2019-04-21] MEDS: ONDANSETRON 4 MG/2 ML VIAL IV PRN (13:11)
[2019-04-21] MEDS: ceFAZolin 2,000 MG in PREMIX 1 EACH IV SCH ×2 (13:12→22:41)
[2019-04-21] MEDS: MORPHINE 4 MG/1 ML VIAL IV PRN ×2 (15:19→20:31)
[2019-04-21] MEDS: PARoxetine 20 MG TABLET PO SCH (20:33)
[2019-04-21] MEDS: DICLOFENAC SODIUM 50 MG TABLET PO SCH (20:33)
[2019-04-21] MEDS: rOPINIRole 1 MG TABLET PO SCH (20:33)
[2019-04-21] MEDS: FONDAPARINUX 2.5 MG/0.5 ML SYRINGE SUBCUT SCH (20:33)
[2019-04-22 05:10] LABS: Basophils % 0.4 % (0.0-0.8); Eosinophils % 0.4 % (0.00-10.9); Hematocrit 33.7 VOL% (35.7-47.0); Hemoglobin 10.2 GM/DL (12.0-16.0); Immature Granulocytes % 0.6 %; Immature Granulocytes Absolute 0.06 #; Lymphocytes # 1.4 10*3/uL (1.4-4.0); Lymphocytes % 13.9 % (21.3-54.2); Mean Corpuscular HGB Conc 30.3 GM/DL (32-36); Mean Corpuscular Volume 95.5 FL (87-102); Mean Platelet Volume 9.5 FL (9.6-12.0); Monocytes % 7.9 % (1.7-12.7); Neutrophils % 76.8 % (38.7-73.9); Platelet Count 254 T/CUMM (130-400); Red Blood Count 3.53 MC/CUMM (3.8-5.5); Red Cell Distribution Width 14.3 % (9.3-17.3); White Blood Count 10.1 T/CUMM (4-12)
[2019-04-22] MEDS: MORPHINE 4 MG/1 ML VIAL IV PRN ×2 (05:17→21:18)
[2019-04-22] MEDS: ONDANSETRON 4 MG/2 ML VIAL IV PRN ×3 (05:19→21:20)
[2019-04-22 05:34] LABS: Calcium 8.4 MG/DL (8.5-10.1); Osmolality,Calculated 275.5 MOS/KG (273-304)
[2019-04-22] MEDS: DICLOFENAC SODIUM 50 MG TABLET PO SCH ×2 (09:52→21:21)
[2019-04-22] MEDS: amLODIPine 10 MG TABLET PO SCH (09:52)
[2019-04-22] MEDS: LISINOPRIL 20 MG TABLET PO SCH (09:52)
[2019-04-22] MEDS: CETIRIZINE 10 MG TABLET PO SCH (09:53)
[2019-04-22] MEDS: DOCUSATE SODIUM 100 MG CAPSULE PO SCH ×2 (09:53→21:21)
[2019-04-22] MEDS: CARVEDILOL 6.25 MG TABLET PO SCH ×2 (09:53→21:22)
[2019-04-22] MEDS: MONTELUKAST CHEW 5 MG TABLET PO SCH (09:53)
[2019-04-22] MEDS: rOPINIRole 1 MG TABLET PO SCH (21:20)
[2019-04-22] MEDS: PARoxetine 20 MG TABLET PO SCH (21:22)
[2019-04-22] MEDS: FONDAPARINUX 2.5 MG/0.5 ML SYRINGE SUBCUT SCH (21:22)
[2019-04-23] MEDS: LISINOPRIL 20 MG TABLET PO SCH (08:29)
[2019-04-23] MEDS: CETIRIZINE 10 MG TABLET PO SCH (08:29)
[2019-04-23] MEDS: DOCUSATE SODIUM 100 MG CAPSULE PO SCH (08:29)
[2019-04-23] MEDS: MONTELUKAST CHEW 5 MG TABLET PO SCH (08:29)
[2019-04-23] MEDS: DICLOFENAC SODIUM 50 MG TABLET PO SCH (08:30)
[2019-04-23] MEDS: amLODIPine 10 MG TABLET PO SCH (08:30)
[2019-04-23] MEDS: CARVEDILOL 6.25 MG TABLET PO SCH (08:31)
[2019-04-23 12:18] VITALS: BP 142/85
== END 2019-04-23 11:48 | disposition home health service (06) | DRG 470 ==
LOC: N.PREADM 05:46 → N.SDSINP 05:46 → N.3E 09:41
PROVIDERS: ADMIT Orthopaedic Surgery; ATTEND Orthopaedic Surgery